=== PATIENT | female | born 1980 | race Caucasian/White ===

== ENCOUNTER → 2018-04-28 | Outpatient (CLI) | payer SELFPAY ==
[~2018-04-28] MED LIST: DICY-42 PO; FLUO40CA76 PO; HYDR-4240 PO; LEVO1TAB29 PO; LOR10 PO; LORA-1254 PO; LORA-1455 PO; MULT1CAP41 PO; PARO-242 PO; PROAIRPT IH
--- NOTE | 2018-04-28 10:49 | RADIOLOGY IMAGING REPORT ---
FACILITY: [facility] PATIENT NAME: Juana Awan : 1980 MR: [id number] V: [id number] EXAM DATE: ORDERING PHYSICIAN: SAGRARIO MARIN TECHNOLOGIST: [place] [facility] [place] : 1980 Visit/Account:[id number] Date of Sevice: 04/28/2018 PELVIC HISTORY: Ovarian cyst TECHNIQUE: Transabdominal and transvaginal ultrasound pelvis. COMPARISON: September 22, 2013 FINDINGS: Uterus: ; 8.9 cm length x 3.7 cm AP x 4.2 cm transverse. Myometrium: Unremarkable. Endometrium: Unremarkable; double thickness 13 mm. Cervix: Nabothian cysts. Ovaries: Right - 2.4 x 1.9 x 2 cm and contains a 1.3 cm simple cyst Left - 2.8 x 2.2 x 2.8 cm and contains a 2.2 cm simple cyst Blood flow is documented in each ovary by duplex Doppler ultrasound. Adnexa: The adnexal vessels are mildly prominent. Free pelvic fluid: None. IMPRESSION: Bilateral simple appearing ovarian cysts as described above Small nabothian cysts Mildly prominent adnexal vessels Report Dictated By: Farzaneh Porras MD at 04/28/2018 10:42 AM Report E-Signed By: Farzaneh Porras MD at 04/28/2018 10:45 AM WSN:[email or web address]
== END ==
LOC: US 00:55
PROVIDERS: ATTEND Family Medicine
DX: N83.201 Unspecified ovarian cyst, right side (principal); N83.202 Unspecified ovarian cyst, left side; N88.8 Other specified noninflammatory disorders of cervix uteri; N84.1 Polyp of cervix uteri
CPT/HCPCS: 76856

== ENCOUNTER → 2018-09-07 | Outpatient (CLI) | payer SELFPAY ==
--- NOTE | 2018-09-08 08:22 | RADIOLOGY IMAGING REPORT ---
FACILITY: [facility] [place] PATIENT NAME: FRANCO KWONG : [id number] MR: [id number] V: [id number] EXAM DATE: [id number] ORDERING PHYSICIAN: SAGRARIO MARIN TECHNOLOGIST: Alberta Boyd PROCEDURE:BILATERAL DIGITAL SCREENING MAMMOGRAM WITH CAD ASSISTED INTERPRETATION & 3D TOMOSYNTHESIS COMPARISON:Prior mammogram 05/02/13. INDICATIONS:screening FINDINGS: Dense heterogeneous fibroglandular tissue is seen throughout the breasts. The parenchymal pattern has remained stable allowing for difference in mammographic technique & patient positioning. There is no evidence of malignant appearing mass, malignant appearing calcifications or other secondary sign of malignancy in either breast. DIAGNOSTIC CATEGORY 1--NEGATIVE. RECOMMENDATIONS: ROUTINE MAMMOGRAM AND CLINICAL EVALUATION. IMPRESSION: BIRADS 1: Negative. No significant abnormality is seen. Dictated by: Farzaneh Porras M.D. on 09/07/2018 at 16:26 Transcribed by: CARMELO on 09/08/2018 at 8:21 Approved by: Farzaneh Porras M.D. on 09/08/2018 at 8:21 [facility]
== END ==
LOC: MAMO 00:28
PROVIDERS: ATTEND Family Medicine
DX: Z12.31 Encounter for screening mammogram for malignant neoplasm of breast (principal); Z80.3 Family history of malignant neoplasm of breast
CPT/HCPCS: 77063; 77067

== ENCOUNTER → 2019-06-03 | Outpatient (CLI) | payer SELFPAY ==
--- NOTE | 2019-06-03 12:41 | EKG ---
FACILITY: [facility] PATIENT NAME: FRANCO KWONG : [id number] MR: [id number] V: [id number] EXAM DATE: ORDERING PHYSICIAN: SAGRARIO MARIN TECHNOLOGIST: Test Reason : palpitations Blood Pressure : / mmHG Vent. Rate : 078 BPM Atrial Rate : 078 BPM P-R Int : 142 ms QRS Dur : 078 ms QT Int : 376 ms P-R-T Axes : 053 060 044 degrees QTc Int : 428 ms Sinus rhythm No acute appearing findings No previous ECGs available Confirmed by MATTY FRAIRE ([id number] on 06/03/2019 8:45:15 PM Referred By: Confirmed By:MATTY FRAIRE
--- NOTE | 2019-06-03 14:12 | RADIOLOGY IMAGING REPORT ---
FACILITY: [facility] [place] PATIENT NAME: Juana Awan : 1980 MR: [id number] V: [id number] EXAM DATE: ORDERING PHYSICIAN: SAGRARIO MARIN TECHNOLOGIST: Location: [facility] Patient: Juana Awan : 1980 Visit/Account:[id number] Date of Sevice: 06/03/2019 Exam type: CHEST PA LAT History: Layering irregular heartbeat since 05/23/2019 Comparison: None. Findings: The lungs are free of acute effusions, infiltrates or edema. The cardiac silhouette is normal in siz e. The trachea is in midline. There is a gentle dextroconvex scoliosis of the thoracic spine IMPRESSION: 1. No acute cardiac pulmonary process is seen Report Dictated By: Farzaneh Porras MD at 06/03/2019 2:05 PM Report E-Signed By: Farzaneh Porras MD at 06/03/2019 2:05 PM WSN:[email or web address]
== END ==
LOC: RAD 11:46
PROVIDERS: ATTEND Family Medicine
DX: R00.2 Palpitations (principal)
CPT/HCPCS: 71046; 93005